=== PATIENT | male | born 1945 | race Native Hawaiian/Other Pacific Islander ===

== ENCOUNTER 2017-10-23 12:39 | Day surgery (SDC) | payer MEDICAID, MEDICARE ==
[2017-10-23] MEDS ORDERED: MIDAZOLAM HCL 2MG/2ML VIAL IV ONE (12:40)
[2017-10-23] MEDS ORDERED: LIDOCAINE 2% MDV (20MG/ML) 20ML VIAL IV ONE (12:40)
[2017-10-23] MEDS ORDERED: PROPOFOL 10 MG/ML VIAL IV ONE (12:40)
--- NOTE | 2017-10-24 13:10 | Operative Note ---
DATE OF SURGERY: 10/23/2017 OPERATION: COLONOSCOPY to the cecum with cold biopsy forceps polypectomy. INDICATION: History of adenomatous polyps. His last examination was 2008. ANESTHESIA: Intravenous sedation was administered by the department of anesthesiology and included Diprivan titrated to effect. PROCEDURE: Following informed consent from this alert individual including a discussion of the risks and benefits of the procedure and an opportunity for the patient to ask questions, the patient was in the left lateral decubitus position. A digital rectal examination was performed. No abnormalities were noted. Following this, the Olympus [id number] video colonoscope was inserted into the rectum without resistance. The rectal mucosa had a normal appearance with normal folds and distensibility. The colonoscope was advanced up through the bowel to the level of the cecum without much difficulty. Throughout the bowel the mucosa appeared normal, the folds were normal, and the bowel was fairly well distensible. The cecum was well defined by noting the appendiceal orifice and ileocecal valve. From the base of the cecum, the colonoscope was then withdrawn back through the bowel, reexamining the mucosa upon withdrawal. No abnormalities were noted except for a diminutive 3 mm polyp in the transverse colon which was removed with cold biopsy forceps. Retroflexion in the rectum was endoscopically normal. The endoscope was straightened and withdrawn. The colon preparation was good. The patient tolerated the procedure well and was returned to the recovery area in stable condition. IMPRESSION: 1. Diminutive 3 mm transverse colon polyp removed with biopsy forceps. 2. Otherwise unremarkable colonoscopy to the cecum. RECOMMENDATIONS: The patient was advised that he should receive a copy of his pathology report at home in the next 2-3 weeks. Most likely will have recheck colonoscopy in 5 years' time for polyp surveillance, as he had a history of adenomatous polyps in the past. Followup will also be with Tejinder Linder DO. As always, thank you for allowing me to participate in the care of your patient. CC: DO PABLO Beaulieu
== END 2017-10-23 14:55 | disposition home or self-care (01) ==
LOC: HOP 12:39
PROVIDERS: ATTEND Internal Medicine Gastroenterology
DX: Z86.010 Personal history of colon polyps (principal); D12.3 Benign neoplasm of transverse colon; E11.9 Type 2 diabetes mellitus without complications; Z79.84 Long term (current) use of oral hypoglycemic drugs; E03.9 Hypothyroidism, unspecified; I10 Essential (primary) hypertension